=== PATIENT | female | born 1945 | race Caucasian/White ===

== ENCOUNTER 2016-08-08 04:42 | Emergency (ER) | payer MEDICARE, OTHER ==
[~2016-08-08] VITALS: Ht 172.7 cm; Wt 2.5 kg
[~2016-08-08 04:42] MED LIST: CALC-312 PO; CYAN500T15 PO; ECHICAP PO; ESTR0.1C VA; FER325T PO; GLUC500T48 PO; LEVO88TA36 PO; LOSA50TA6 PO; LUTE6CAP PO; MULTCAP98 PO; OMEG100078 PO; RANI1TAB4 PO; [UNRECOGNIZED DRUG - CODE] PO
[2016-08-08 05:59] LABS: Basophils # (auto) 0 uL; Basophils % (auto) 0.1 % (0.0-2.0); Eosinophils # (auto) 0 uL; Eosinophils % (auto) 0.2 % (0.0-7.0); Hematocrit 43.5 % (36.0-46.0); Hemoglobin 13.9 g/dL (12.2-16.2); Lymphocytes # (auto) 0.5 uL; Lymphocytes % (auto) 5.1 % (10.0-50.0); Mean Corpuscular Hemoglobin 28.6 pg (28.0-32.0); Mean Corpuscular Volume 89.2 fL (80.0-100.0); Mean Platelet Volume 8.8 fL (7.4-10.4); Monocytes # (auto) 0.4 uL; Monocytes % (auto) 4.4 % (0.0-12.0); Neutrophils # (auto) 9.1 uL; Neutrophils % (auto) 90.2 % (37.0-80.0); Platelet Count (auto) 398 10^3/uL (140-450); Red Cell Distribution Width 13.4 % (11.6-16.0); White Blood Cell 10.1 10^3/uL (4.4-10.8)
[2016-08-08 06:21] LABS: Albumin 3.8 g/dL (3.4-5.0); Anion Gap 8 (5-15); Blood Urea Nitrogen 19 mg/dL (7-18); Calcium 9.4 mg/dL (8.5-10.1); Carbon Dioxide 28 mmol/L (21-32); Chloride 105 mmol/L (98-107); Glucose 129 mg/dL (74-106); Magnesium 2.3 mg/dL (1.6-2.6); Potassium 4.5 mmol/L (3.5-5.1); Sodium 141 mmol/L (136-145)
[2016-08-08 06:23] LABS: Aspartate Aminotransferase 12 U/L (15-37); BUN/Creatinine Ratio 10.7; GFR African American 36 mL/min; GFR Non-African American 30 mL/min
[2016-08-08 06:28] LABS: Alkaline Phosphatase 115 U/L (45-117); Bilirubin, Total 0.3 mg/dL (0.2-1.0); Total Protein 7.6 g/dL (6.4-8.2)
[2016-08-08 06:34] LABS: Urine Bilirubin Negative (Negative); Urine Blood Negative /uL (Negative); Urine Color Yellow (Yellow); Urine Glucose Normal (Normal); Urine Hyaline Cast FEW /lpf (0 - 2); Urine Ketone Negative (Negative); Urine Nitrite Negative (Negative); Urine RBC 1 /hpf (0 - 4); Urine Squamous Epithelial Cell FEW /hpf (<5); Urine Urobilinogen Normal (Negative)
[2016-08-08 07:38] VITALS: BP 131/66
== END 2016-08-08 08:07 | disposition home or self-care (01) ==
LOC: ER 04:42
DX: K52.9 Noninfective gastroenteritis and colitis, unspecified (principal); I10 Essential (primary) hypertension; K56.60 Unspecified intestinal obstruction; E07.9 Disorder of thyroid, unspecified
CPT/HCPCS: 36415; 80053; 81001; 83690; 83735; 84484; 85025; 93005

== ENCOUNTER 2018-07-26 17:02 | Emergency (ER) | payer MEDICARE, OTHER ==
[~2018-07-26] VITALS: Ht 172.7 cm; Wt 90.7 kg
[~2018-07-26 17:02] MED LIST changes: +LOSA-46 PO; -LOSA50TA6 PO
[2018-07-26 17:56] LABS: Urine Bacteria FEW /hpf (None Seen); Urine Blood 1+ /uL (Negative); Urine Specific Gravity 1.017 (1.001-1.035); Urine WBC 3 /hpf (0 - 5)
[2018-07-26 18:21] LABS: Basophils # (auto) 0.1 uL; Basophils % (auto) 0.6 % (0.0-2.0); Eosinophils # (auto) 0 uL; Eosinophils % (auto) 0.4 % (0.0-7.0); Hematocrit 45.9 % (36.0-46.0); Hemoglobin 15.2 g/dL (12.2-16.2); Lymphocytes # (auto) 0.9 uL; Lymphocytes % (auto) 7.4 % (10.0-50.0); Mean Corpuscular Hgb Conc. 33.2 g/dL (32.0-36.0); Mean Corpuscular Volume 87.6 fL (80.0-100.0); Monocytes # (auto) 0.4 uL; Monocytes % (auto) 3.4 % (0.0-12.0); Neutrophils # (auto) 10.4 uL; Neutrophils % (auto) 88.2 % (37.0-80.0); Platelet Count (auto) 337 10^3/uL (140-450); Red Blood Cells 5.24 10^6/uL (4.0-5.20); Red Cell Distribution Width 13.4 % (11.8-14.3); White Blood Cell 11.7 10^3/uL (4.4-10.8)
[2018-07-26 18:33] LABS: Chloride 104 mmol/L (98-107); Potassium 4.4 mmol/L (3.5-5.1); Sodium 138 mmol/L (136-145)
[2018-07-26 18:36] LABS: Albumin 3.8 g/dL (3.4-5.0); Anion Gap 9 (5-15); Blood Urea Nitrogen 26 mg/dL (7-18); Calcium 9.3 mg/dL (8.5-10.1); Carbon Dioxide 25 mmol/L (21-32); Glucose 123 mg/dL (74-106); Magnesium 2.4 mg/dL (1.6-2.6)
[2018-07-26 18:40] LABS: Alanine Aminotransferase 40 U/L (13-56); Aspartate Aminotransferase 30 U/L (15-37); BUN/Creatinine Ratio 18.2; Bilirubin, Total 0.4 mg/dL (0.2-1.0); GFR African American 46 mL/min; GFR Non-African American 38 mL/min; Total Protein 8.1 g/dL (6.4-8.2)
[2018-07-26 18:42] LABS: Alkaline Phosphatase 128 U/L (45-117)
[2018-07-26 21:44] VITALS: BP 142/84
== END 2018-07-26 22:34 | disposition left against medical advice (07) ==
LOC: ER 17:02
DX: R10.84 Generalized abdominal pain (principal); R11.2 Nausea with vomiting, unspecified; I10 Essential (primary) hypertension; Z90.49 Acquired absence of other specified parts of digestive tract; Z79.899 Other long term (current) drug therapy
CPT/HCPCS: 36415; 80053; 81001; 83735; 84484; 85025; 93005